=== PATIENT | male | born 1980 | race Caucasian/White ===

== ENCOUNTER 2017-02-03 05:19 | Emergency (ER) | payer MEDICARE, MEDICAID ==
--- NOTE | 2017-02-08 07:21 | ER ---
ADMIT: 02/03/2017 RM/LOC: ER [facility] MR#: [id number] [id number] [place], [place] [id number] [address] [facility] [facility] [address] [place] [address] Emergency Room Report SEX: M AGE: 36 : 1980 DATE: 02/03/2017 ADDENDUM: TIME: 0519 hours. Please refer to Dr. Sun's T-sheet for complete H and P. 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 According to the radiologist, the patient has a known history of end-stage renal disease, on dialysis. He missed dialysis today. We called them and they will dialyze him first thing tomorrow. He was given Dilaudid and Zofran here. His pain was much improved. I reviewed the L-spine x-ray, also was negative. He is ready for discharge. ASSESSMENT: 1. Acute lumbar pain. 2. Myofascial spasm. PLAN: 1. [place] 5, gave him script for 15. 2. Dialyze tomorrow. 3. An outpatient ultrasound of his kidneys as recommended by Radiology. Return if worse. Follow up with Shannon. Jt Mosley MD/ blanche JOB #: [id number] CC: Pj Chappell MD, Attending Physician UNKNOWN, Family Physician
[2017-08-07] MEDS ORDERED: RENVELA800 MG PO (09:39)
[2017-08-07] MEDS ORDERED: SENSIPAR90 MG PO (09:39)
[2017-08-07] MEDS ORDERED: LABETALOL HCL300 MG PO (09:39)
[2017-08-07] MEDS ORDERED: COZAAR100 MG PO (09:40)
[2017-08-07] MEDS ORDERED: LIPITOR40 MG PO (09:40)
[2017-08-07] MEDS ORDERED: RENA-VITE TABL0.8 MG PO (09:40)
[2017-08-07] MEDS ORDERED: NORVASC DPS10 MG PO (09:40)
[2017-08-07] MEDS ORDERED: KAYEXALATE PO (09:41)
[2017-08-07] MEDS ORDERED: TYLENOL DPS325 MG PO (09:41)
[2017-08-07] MEDS ORDERED: COZAAR DPS50 MG PO (09:41)
== END 2017-02-03 10:00 | disposition home or self-care (01) ==
LOC: ER 05:19
DX: M62.830 Muscle spasm of back (principal); I10 Essential (primary) hypertension; E78.5 Hyperlipidemia, unspecified; Z88.0 Allergy status to penicillin; Z79.82 Long term (current) use of aspirin; Z79.899 Other long term (current) drug therapy

== ENCOUNTER 2017-02-23 00:04 | Emergency (ER) | payer MEDICARE, MEDICAID ==
--- NOTE | 2017-02-23 05:57 | ER ---
ADMIT: 02/23/2017 RM/LOC: ER [facility] MR#: [id number] [address] [facility] [address] [place], [place] [address] [address] [facility] [address] [place] [address] Emergency Room Report SEX: M AGE: 36 : 1980 DATE: 02/23/2017 The patient is a 36-year-old male with end-stage renal disease, receiving dialysis Thursday, Thursday, , Thursday x3 hours. States he is compliant with low-sodium diet and actually losing weight in anticipation of transplant. Denies any chest pain, fevers, chills. States he occasionally has bloody cough, increasing orthopnea, and PND. Exam remarkable for morbidly obese, nontoxic, afebrile male with blood pressure 200/105 on admission, 170/90 at discharge. Chest x-ray confirms pulmonary edema, CHF, unchanged from prior. WBC 10.5, hemoglobin 9.1, creatinine 14.4, troponin 0.077, BNP 19,194. The patient was given nitroglycerin, morphine, Lasix, Catapres 0.2 mg sublingual with lowering of blood pressure. Home with Catapres 0.1 mg b.i.d. for blood pressure greater than [address] Diaz today for dialysis. Pj Chappell MD/ yevgeniyl JOB #: [id number] CC: Pj Chappell MD, Attending Physician Niranjan Ortega MD, Family Physician MD Niranjan Smith MD
[2017-08-07] MEDS ORDERED: SENSIPAR90 MG PO (09:39)
[2017-08-07] MEDS ORDERED: RENVELA800 MG PO (09:39)
[2017-08-07] MEDS ORDERED: LABETALOL HCL300 MG PO (09:39)
[2017-08-07] MEDS ORDERED: LIPITOR40 MG PO (09:40)
[2017-08-07] MEDS ORDERED: NORVASC DPS10 MG PO (09:40)
[2017-08-07] MEDS ORDERED: COZAAR100 MG PO (09:40)
[2017-08-07] MEDS ORDERED: RENA-VITE TABL0.8 MG PO (09:40)
[2017-08-07] MEDS ORDERED: KAYEXALATE PO (09:41)
[2017-08-07] MEDS ORDERED: COZAAR DPS50 MG PO (09:41)
[2017-08-07] MEDS ORDERED: TYLENOL DPS325 MG PO (09:41)
== END 2017-02-23 02:05 | disposition home or self-care (01) ==
LOC: ER 00:04
DX: I12.0 Hypertensive chronic kidney disease with stage 5 chronic kidney disease or end stage renal disease (principal); N18.6 End stage renal disease; Z99.2 Dependence on renal dialysis; J81.1 Chronic pulmonary edema; Z88.0 Allergy status to penicillin; Z79.818 Long term (current) use of other agents affecting estrogen receptors and estrogen levels; Z79.899 Other long term (current) drug therapy

== ENCOUNTER 2017-04-21 13:28 | Emergency (ER) | payer MEDICARE, MEDICAID ==
--- NOTE | 2017-04-24 16:27 | ER ---
ADMIT: 04/21/2017 RM/LOC: ER [facility] MR#: [id number] [id number] [place], [place] [address] QING MORAN [address] [place] [address] Emergency Room Report SEX: M AGE: 37 : 1980 DATE: 04/21/2017 See T-sheet for complete H and P. ADDENDUM: A 37-year-old male, who has end-stage renal disease, on dialysis and history of coronary artery disease with CABG, comes in complaining of syncopal episode. States he had his dialysis this morning and then was at home and took his medications include his blood pressure medications. Within half an hour to 45 minutes taking his blood pressure medications, he said he felt a little lightheaded. When he stood up, he felt like he is going to collapse and believes he actually did fall to the ground and might have had a very brief episode of syncope. Says he felt symptomatic for several minutes and felt very lightheaded, but did not have any left-sided heaviness or chest pain. He did state he had a little bit of pain in the right side of his chest where he thinks he might have fallen and hit his chest when he fell and also some pain in his left elbow. In the ER, his vitals were unremarkable. He was actually feeling better by the time he got here. I did check a CBC, which was unremarkable. His chemistries were also unremarkable. He did have an elevated BUN and creatinine consistent with his kidney disease and glucose of 185. His lactic acid initially was 3.4, but a recheck 2 hours later was 2.0. Procalcitonin is 2.81 and a D-dimer of 0.40. EKG was done, which shows sinus rhythm, rate of 96 with an incomplete right bundle. While in the ER, the patient states he was feeling back to his baseline later in his stay. We did check orthostatics and they were fine and is able to get up and ambulate without any difficulty. I discussed the case with Dr. Perez, who is on for the patient's primary care physician, Dr. Niranjan Ortega. Plan at this time is to discharge the patient to home to check his blood pressure at least twice a day and record the values. He is to call Dr. Ortega's office tomorrow to arrange for followup appointment in the next 1 to 2 days. He is also told to return to the ER for any concerning symptoms. DIAGNOSIS: Syncopal episode. Kolby Jimenez MD/ blanche JOB #: [id number] CC: Kolby Jimenez MD, Attending Physician Niranjan Ortega MD, Family Physician
[2017-08-07] MEDS ORDERED: SENSIPAR90 MG PO (09:39)
[2017-08-07] MEDS ORDERED: LABETALOL HCL300 MG PO (09:39)
[2017-08-07] MEDS ORDERED: RENVELA800 MG PO (09:39)
[2017-08-07] MEDS ORDERED: LIPITOR40 MG PO (09:40)
[2017-08-07] MEDS ORDERED: COZAAR100 MG PO (09:40)
[2017-08-07] MEDS ORDERED: RENA-VITE TABL0.8 MG PO (09:40)
[2017-08-07] MEDS ORDERED: NORVASC DPS10 MG PO (09:40)
[2017-08-07] MEDS ORDERED: KAYEXALATE PO (09:41)
[2017-08-07] MEDS ORDERED: TYLENOL DPS325 MG PO (09:41)
[2017-08-07] MEDS ORDERED: COZAAR DPS50 MG PO (09:41)
== END 2017-04-21 18:00 | disposition home or self-care (01) ==
LOC: ER 13:28
DX: R55 Syncope and collapse (principal); I12.0 Hypertensive chronic kidney disease with stage 5 chronic kidney disease or end stage renal disease; N18.6 End stage renal disease; Z99.2 Dependence on renal dialysis; I25.10 Atherosclerotic heart disease of native coronary artery without angina pectoris; Z95.1 Presence of aortocoronary bypass graft; Z88.0 Allergy status to penicillin

== ENCOUNTER 2017-07-23 00:42 | Emergency (ER) | payer MEDICARE, MEDICAID ==
--- NOTE | ~2017-07-23 | ER ---
ADMIT: 07/23/2017 RM/LOC: ER [facility] MR#: [id number] [id number] [place], [place] [address] [address] [address] [place] [address] Emergency Room Report SEX: M AGE: 37 : 1980 DATE: 07/23/2017 ADDENDUM: A 37-year-old male, who has end-stage renal disease on dialysis, comes in complaining of some intermittent shortness of breath. He states that he feels like his symptoms are a little bit worse when he lies flat and also feels slightly anxious. It has been going on for at least a day. He does get dialysis Thursday, , Thursday, and he is due for dialysis this morning. On physical exam, he has good breath sounds. Good air movement. No wheezes, rales, or rhonchi. I did check a CBC, which showed the patient have some anemia, which is not new for him. His chemistries showed a CO2 of 34, BUN of 78, and creatinine of 15.6. His BNP was 11,160, and he has had BNPs higher than this in the past. A chest x-ray showed nothing acute. He was given some Valium p.o. and is feeling better. He is discharged home to go to dialysis today and to follow up with Dr. Diaz. He is told he should return to the ER for any worsening or concerning symptoms. DIAGNOSES: 1. End-stage renal disease, on dialysis. 2. Anxiety. Kolby Jimenez MD/ blanche JOB #: [id number] CC: Kolby Jimenez MD, Attending Physician
== END 2017-07-23 02:56 | disposition home or self-care (01) ==
LOC: ER 00:42
DX: I12.0 Hypertensive chronic kidney disease with stage 5 chronic kidney disease or end stage renal disease (principal); N18.6 End stage renal disease; F41.9 Anxiety disorder, unspecified; I25.10 Atherosclerotic heart disease of native coronary artery without angina pectoris; Z95.1 Presence of aortocoronary bypass graft; Z79.82 Long term (current) use of aspirin; Z79.899 Other long term (current) drug therapy